=== PATIENT | female | born 1985 | race Two or more races ===

== ENCOUNTER 2025-01-16 19:14 | Emergency (ER) | payer MEDICAID, OTHER ==
[~2025-01-16] VITALS: Ht 172.7 cm; Wt 79.1 kg
[2025-01-16 19:15] VITALS: BP 137/72; PULSE 92; RESP 16; TEMP 98.3; O2SAT 99
== END 2025-01-16 19:48 | disposition left against medical advice (07) ==
LOC: ER 19:14
DX: N93.9 Abnormal uterine and vaginal bleeding, unspecified (principal); Z53.21 Procedure and treatment not carried out due to patient leaving prior to being seen by health care provider